=== PATIENT | female | born 1990 | race Caucasian/White ===

== ENCOUNTER 2017-10-05 13:32 | Emergency (ER) | payer SELFPAY ==
[~2017-10-05] VITALS: Ht 157.5 cm; Wt 61.2 kg
--- NOTE | 2017-10-05 13:35 | NUR ---
PT COMES TO ER WITH C/O OF VAGINAL BLEEDING. PT IS 9 WEEKS WITH FIRST CHILD. PT SAID SHE SHE HAD STARTED BLEDING THIS MORNING. MINIMAL AMOUNT. NO C/O OF PAIN. SHE DENIES ANY OTHER VAGINAL DISCHARGE, OR PAIN WITH URINALTION. BOWEL SOUNDS POSITIVE. SHE DENIES FEVER, CHILLS, OR SOB. SISTER AT BEDSIDE WITH PT.
[2017-10-05 13:36] VITALS: BP 120/74
--- NOTE | 2017-10-05 13:36 | NUR ---
PT IS G-1 AND P-0
--- NOTE | 2017-10-05 13:40 | NUR ---
DR FRANCIS AT BEDSIDE EVALUATING PT.
--- NOTE | 2017-10-05 14:08 | NUR ---
ULTRA SOUND DONE AT BEDSIDE AT THIS TIME. PT HAS NO COMPLAINTS OF PAIN.
[2017-10-05 14:30] LABS: BASOPHILS # (AUTO) 0.1 K/uL (0.00-0.22); BASOPHILS % (AUTO) 0.6 % (0.0-2.0); EOSINOPHILS # (AUTO) 0.2 K/uL (0-0.4); EOSINOPHILS % (AUTO) 1.8 % (0.0-4.0); HEMATOCRIT 35.9 % (36-48); HEMOGLOBIN 11.8 g/dL (12.0-16.0); LYMPHOCYTES # (AUTO) 1.6 K/uL (2.5-16.5); LYMPHOCYTES % (AUTO) 15.2 % (20.5-51.1); MEAN CORPUSCULAR HEMOGLOBIN 29 pg (27-31); MEAN CORPUSCULAR HGB CONC 33 g/dL (33-37); MEAN CORPUSCULAR VOLUME 87.3 fL (80-94); MONOCYTES # (AUTO) 0.6 K/uL (0.8-1.0); MONOCYTES % (AUTO) 5.9 % (1.7-9.3); NEUTROPHILS # (AUTO) 8.1 K/uL (1.8-7.7); NEUTROPHILS % (AUTO) 76.5 % (42.2-75.2); PLATELET COUNT (AUTO) 365 K/uL (140-450); RED BLOOD CELL COUNT(AUTO) 4.11 MIL/uL (4.20-5.40); RED CELL DISTRIBUTION WIDTH 13.9 % (11.6-13.7); WHITE BLOOD COUNT (AUTO) 10.5 K/uL (4.8-10.8)
[2017-10-05 15:24] LABS: ANION GAP 14.5 (8-16); CARBON DIOXIDE 23.2 mmol/L (21-32); CREATININE 0.7 mg/dL (0.6-1.3); POTASSIUM 3.7 mmol/L (3.5-5.1)
[2017-10-05 15:27] LABS: ALBUMIN 3.7 g/dL (3.4-5.0); TOTAL BILIRUBIN 0.4 mg/dL (0.0-1.0)
[2017-10-05 16:08] LABS: APPEARANCE,URINE CLEAR (CLEAR); BILIRUBIN,URINE NEGATIVE (NEGATIVE); BLOOD, URINE 2+ (NEGATIVE); COLOR,URINE YELLOW (YELLOW); LEUKOCYTE ESTERASE ,URINE NEGATIVE (NEGATIVE); NITRITE, URINE NEGATIVE (NEGATIVE); UGLUCOSE NEGATIVE (NEGATIVE)
--- NOTE | 2017-10-05 16:11 | NUR ---
PT DISCHARGED IN STABLE CONDITION WITH INSTRUCTIONS TO RETURN TO ER FOR A URINE TEST TO TEST HORMONES. PT NAME BAND OFF AND ALL QUESTIONS AND CONCERNS ANSWERED.
[2017-10-05 16:20] VITALS: BP 99/68
[2017-10-05 16:22] LABS: RBC,URINE 0-5 (RARE) /HPF (0-5); WBC,URINE 0-5 (RARE) /HPF (0-5)
== END 2017-10-05 16:11 | disposition home or self-care (01) ==
LOC: MED 13:32
DX: O20.0 Threatened abortion (principal); O20.8 Other hemorrhage in early pregnancy; Z3A.09 9 weeks gestation of pregnancy
CPT/HCPCS: 36415; 76801; 80053; 81001; 81025; 84702; 85025; 86900; 86901; 99285; Q0092

== ENCOUNTER 2017-10-07 13:04 | Emergency (ER) | payer SELFPAY ==
[~2017-10-07] VITALS: Ht 157.5 cm; Wt 61.2 kg
[2017-10-07 13:24] VITALS: BP 121/71
--- NOTE | 2017-10-07 13:29 | NUR ---
Patient ambulated to chair B with family. RN evaluating patient.
--- NOTE | 2017-10-07 13:45 | NUR ---
pt here for recheck of beta HCG per er md merritt order. pt was seen here for on 10/05/17 and dx with threatened miscarriage. pt sts she is 9wks . . LMP 07/29/17. Pt denies any abd pain or vag bleeding. . DENIES N/V/D; SKIN IS PINK/WARM/DRY; AAOX4 WITH EVEN AND STEADY GAIT; LUNGS CLEAR BL; HR EVEN AND REGULAR; PT DENIES ANY FEVER, CP, SOB, OR COUGH AT THIS TIME; PATIENT STATES PAIN OF 0/10 AT THIS TIME; VSS; PATIENT POSITIONED FOR COMFORT; HOB ELEVATED; BEDRAILS UP X2; BED DOWN. ER MADE AWARE OF PT STATUS.
--- NOTE | 2017-10-07 14:11 | NUR ---
Dr. Singleton evaluating patient.
[2017-10-07 16:08] VITALS: BP 125/70
--- NOTE | 2017-10-07 16:08 | NUR ---
Patient discharged with v/s stable. Written and verbal after care instructions given and explained. Patient verbalized understanding. Ambulatory with steady gait. All questions addressed prior to discharge. Advised to follow up with PMD.
== END 2017-10-07 16:08 | disposition home or self-care (01) ==
LOC: MED 13:04
DX: O46.91 Antepartum hemorrhage, unspecified, first trimester (principal); Z3A.09 9 weeks gestation of pregnancy
CPT/HCPCS: 36415; 84702; 99283

== ENCOUNTER 2018-07-16 16:27 | Emergency (ER) | payer OTHER ==
[~2018-07-16] VITALS: Ht 162.6 cm; Wt 67.6 kg
[2018-07-16 16:38] VITALS: BP 134/88
[2018-07-16] MEDS ORDERED: NACL 0.9% 1,000 ML IV SCH (16:46)
[2018-07-16 18:08] LABS: BASOPHILS # (AUTO) 0.1 K/uL (0.00-0.22); BASOPHILS % (AUTO) 0.5 % (0.0-2.0); EOSINOPHILS # (AUTO) 0.5 K/uL (0-0.4); EOSINOPHILS % (AUTO) 3.6 % (0.0-4.0); HEMATOCRIT 39.1 % (36-48); HEMOGLOBIN 12.5 g/dL (12.0-16.0); LYMPHOCYTES # (AUTO) 2.5 K/uL (2.5-16.5); LYMPHOCYTES % (AUTO) 18.5 % (20.5-51.1); MEAN CORPUSCULAR HEMOGLOBIN 27 pg (27-31); MEAN CORPUSCULAR HGB CONC 32 g/dL (33-37); MEAN CORPUSCULAR VOLUME 85.1 fL (80-94); MONOCYTES # (AUTO) 0.9 K/uL (0.8-1.0); MONOCYTES % (AUTO) 6.5 % (1.7-9.3); NEUTROPHILS # (AUTO) 9.7 K/uL (1.8-7.7); NEUTROPHILS % (AUTO) 70.9 % (42.2-75.2); PLATELET COUNT (AUTO) 383 K/uL (140-450); RED CELL DISTRIBUTION WIDTH 15.2 % (11.6-13.7); WHITE BLOOD COUNT (AUTO) 13.7 K/uL (4.8-10.8)
[2018-07-16 18:10] LABS: APPEARANCE,URINE CLOUDY (CLEAR); BILIRUBIN,URINE 1+ (NEGATIVE); BLOOD, URINE 3+ (NEGATIVE); COLOR,URINE ORANGE (YELLOW); LEUKOCYTE ESTERASE ,URINE TRACE (NEGATIVE); NITRITE, URINE NEGATIVE (NEGATIVE); UGLUCOSE NEGATIVE (NEGATIVE)
[2018-07-16 18:16] LABS: ANION GAP 14.2 (8-16); CARBON DIOXIDE 25.2 mmol/L (21-32); CREATININE 0.7 mg/dL (0.6-1.3); POTASSIUM 3.4 mmol/L (3.5-5.1)
[2018-07-16 18:21] LABS: RBC,URINE TOO NUMEROUS TO COUN /HPF (0-5)
[2018-07-16 18:29] LABS: PROTHROMBIN TIME 9.4 secs (10.8-13.4)
[2018-07-16 19:03] VITALS: BP 106/78
== END 2018-07-16 19:03 | disposition home or self-care (01) ==
LOC: MED 16:27
DX: N93.9 Abnormal uterine and vaginal bleeding, unspecified (principal); R42 Dizziness and giddiness
CPT/HCPCS: 36415; 76830; 80048; 81001; 81025; 84703; 85025; 85610; 85730; 87086; 96360; 99284; J7030; Q0092